=== PATIENT | female | born 1950 | race Caucasian/White ===

== ENCOUNTER 2024-07-06 07:01 | Day surgery (SDC) | payer MEDICARE, SELFPAY ==
[2024-07-03 09:57] VITALS: BMI 25.6
[2024-07-06] VITALS (7 sets, daily range): BP systolic 94–109; BP diastolic 52–64; PULSE 70–72; RESP 16–18; TEMP 36.3–36.6; O2SAT 95–99
[2024-07-06] MEDS: 0.9 % SODIUM CHLORIDE 1000ML 1,000 ML 25 ML IV (07:32)
--- NOTE | 2024-07-06 07:32 | EXP.ANES.CKL ---
[facility] Disclaimer: The information contained in this section may have been updated after the patient was seen, as this information can be updated by other users. Medical History (Updated 07/06/24 @ 07:[address]air) Acid reflux Pacemaker Depression Surgical History (Updated 07/06/24 @ 07:[address]air) Hx of hernia repair History of shoulder surgery History of hand surgery History of weight loss surgery History of back surgery Hx of cholecystectomy History of partial hysterectomy Hx of tonsillectomy Family History (Updated 07/06/24 @ 07:[address]) Other Drug abuse Hypertension Lung cancer Social History Smoking Status: Current every day smoker alcohol intake: never substance use type: denies use current occupational status: employed Travel in the last 8 weeks: None caffeine: No [facility] Anesthesia Checklist Patient Identification Patient Identification: Arm Band, Family and Verbal (Name & ) Structural Data Admitted From: Home Planned Operative Procedure/s: EGD Consent for Planned Operative Procedure(s) Verified: Yes Verified Documents: Surgical Consent and History and Physical NPO Status Verified Time NPO: 20:00 Additional verifications Patient : No Anesthesia Reactions: No Cardiovascular Assessment Heart Sounds: S1 & S2 Pulse Rhythm: Irregular Peripheral Edema: No Airway Assessment Mallampati Score:: Class II C-Spine Mobility Assessed: Yes (FROM) TMJ Mobility Assessed: Yes Dentition: Edentulous Neurological Assessment Level of Consciousness: Awake, Alert, Appropriate and Follows Commands Hx Seizures: No Numbness or tingling in extremities: No Anesthesia Plan Anesthesia Risk discussed: Yes Anesthesia Plan: Verified ASA Class: III Anesthesia Type: MAC
--- NOTE | 2024-07-06 07:55 | ECG_ITS ---
APPROVED REPORT Exam: Resting ECG HR:69 bpm ECG Measurements Heart Rate 69 AXES MI 240 P 101 QRSd 85 QRS 45 QT 395 T 15 QTc 415 Conclusion ELECTRONIC ATRIAL PACEMAKER LOW QRS VOLTAGE IN PRECORDIAL LEADS [QRS DEFLECTION < 1.0 mV IN CHEST LEADS] ABNORMAL RHYTHM ECG UNCONFIRMED REPORT Electronically signed by : Rosendo Liao MD 07/07/2024 17:01:11
--- NOTE | 2024-07-06 08:29 | EXP.HP ---
History of Present Illness *Admission Date: 07/06/24 *Reason for visit:: Dysphagia *History of present illness: Mrs. Butts is a 74-year-old female who is here for recurrent dysphagia. The examination is deemed medically necessary for EGD. The patient has been seen, interviewed and examined prior to the procedure by both myself and the anesthesia provider. [facility] Disclaimer: The information contained in this section may have been updated after the patient was seen, as this information can be updated by other users. Medical History (Updated 07/06/24 @ 08:33 by Paul Samuel II, MD) Acid reflux Pacemaker Depression Surgical History (Updated 07/06/24 @ 07:[address]) Hx of hernia repair History of shoulder surgery History of hand surgery History of weight loss surgery History of back surgery Hx of cholecystectomy History of partial hysterectomy Hx of tonsillectomy Family History (Updated 07/06/24 @ 07:[address]) Other Drug abuse Hypertension Lung cancer Social History (Updated 07/06/24 @ 07:34 by Carolyn Keenan CRNA) Smoking Status: Current every day smoker alcohol intake: never substance use type: denies use current occupational status: employed Travel in the last 8 weeks: None caffeine: No Review of Systems Review of Systems Review of systems (narrative): Negative *Cardiovascular Comments: Negative *Gastrointestinal Comments: Negative *Genitourinary Comments: Negative *Musculoskeletal Comments: Negative *Neurologic Comments: Negative Meds Home Medications and Allergies Home Medications ?Medication ?Instructions ?Recorded ?Confirmed ?Type buspirone 10 mg tablet 10 mg PO DAILY 07/03/24 07/06/24 History cetirizine 10 mg tablet (Zyrtec) 10 mg PO DAILY 07/03/24 07/06/24 History escitalopram oxalate 20 mg tablet 20 mg PO DAILY 07/03/24 07/06/24 History (Lexapro) magnesium 200 mg tablet 200 mg PO DAILY 07/03/24 07/06/24 History omeprazole 40 mg capsule,delayed 40 mg PO DAILY 07/03/24 07/06/24 History release ondansetron HCl 8 mg tablet 8 mg PO Q8H PRN nasuea 07/03/24 07/06/24 History oxybutynin chloride 5 mg tablet 5 mg PO DAILY 11/08/24 11/11/24 History pramipexole 0.25 mg tablet 0.25 mg PO HS 07/03/24 07/06/24 History New Prescriptions to Start Prescriptions: Allergies Allergy/AdvReac Type Severity Reaction Status Date / Time oxycodone [From Percocet] AdvReac Hives Verified 07/06/24 07:24 Exam Data for Last 24 hours Vital signs and Labs for Last 24 Hours: Temp Pulse Resp BP Pulse Ox O2 Del Method 98 F 71 16 104/53 L 98 Room Air 07/06/24 07:25 07/06/24 07:25 07/06/24 07:25 07/06/24 07:25 07/06/24 07:25 07/06/24 07:25 I & O for Last 24 hours: Intake & Output 07/03/24 07/04/24 07/05/24 07/06/24 23:59 23:59 23:59 23:59 Weight 140 lb *Routine HEENT Exam Head: Present normocephalic Eye: Present EOMI and PERRL ENT: Present mucous membranes moist *Routine Neck Exam Neck: Present supple *Routine Respiratory Exam Respiratory: Present CTA bilaterally *Routine Cardiovascular Exam Cardiovascular: Present RRR *Routine Abdominal Exam Abdominal: Present soft and normoactive bowel sounds; Absent tenderness *Routine Rectal Exam Rectal:: deferred *Routine Genitalia Exam Genitalia:: deferred *Routine Extremities Exam Extremities: Absent cyanosis, clubbing or edema *Routine Skin Exam Skin: Present warm; Absent rash *Routine Neurological Exam Neurological: Present alert and oriented X3 Assessment and Plan *Assessment and plan (1) Dysphagia: Status: Acute Category: Medical Code(s): R13.10 - Dysphagia, unspecified (2) History of esophageal stricture: Status: Acute Category: Medical Code(s): Z87.19 - Personal history of other diseases of the digestive system Plan A/P: 1. Dysphagia with prior history of esophageal stricture is the preprocedural diagnosis. The patient will be anesthetized/sedated using MAC sedation. The patient has been seen and examined. Cardiac and lung assessment prior to the examination is stable. Proceed with planned EGD
--- NOTE | 2024-07-06 08:33 | HMH.PROCNOTE ---
[facility] Procedure Note Date: 07/06/24 Time: 08:43 Procedure Note:: Upper Endoscopy Procedure Report: Esophagogastroduodenoscopy with cold biopsies and TTS balloon dilation Endoscopost: Paul Samuel II, MD Referring Physician: STAN Seth ([address] [place] [id number])?[facility] Date of Procedure: July 06, 2024 Equipment: Olympus GIF 190 standard upper endoscope Sedation: MAC sedation Indications: Mrs. Butts is a 74-year-old female with recurrent dysphagia to solid foods (especially rice and noodles) in the lower retrosternal region. The patient has had prior esophageal dilations and her last was approximately 1-1/2 years ago. She reports no heartburn, reflux or dyspepsia. She does have some intermittent belching and feels like a gas bubble in the retrosternal region. Procedure: Prior to the procedure, a history and physical exam was performed, and patient's medications and allergies were reviewed. The risks, benefits and alternatives of the sedation and procedure were discussed with the patient. All questions were answered and informed consent was obtained. The patient was brought to the procedure room. Patient identification and proposed procedure were verified by the physician and the nurse. The patient was placed in a left lateral decubitus position and the scope was passed under direct vision. Throughout the procedure, the patient's blood pressure, pulse, and oxygen saturations were monitored continuously. The upper GI endoscopy was accomplished without difficulty. The patient tolerated the procedure well. Findings: The scope was passed directly into the upper esophagus and advanced to the third portion of the duodenum. The post bulbar duodenum was normal with normal mucosa and conniventes. There was evidence of Piper's gland hypertrophy within the duodenal bulb and cold biopsies were obtained. This was nodular mucosa in appearance. The scope was withdrawn through a normal duodenal bulb and pylorus into the stomach. The antrum was normal in appearance. There were thickened rugal folds in the body and fundus of the stomach with evidence of chronic gastritis with reticular mosaic mucosal pattern. Cold biopsies were taken along the lesser curvature. Upon retroflexion there was no significant hiatal hernia. The scope was then withdrawn into the esophagus. There was no evidence of reflux esophagitis, peptic stricture or Schatzki's ring. There was no Engle's. There were strong tertiary contractions and evidence of moderate to marked esophageal dysmotility. The entire esophagus was dilated to 60 Monegasque/20 mm with a TTS hydrostatic balloon. There was mild resistance at the cricopharyngeus. The remainder of the esophageal mucosa was normal. Impression: 1. Moderate to marked esophageal dysmotility 2. Moderate chronic gastritis with thickened rugal folds 3. Piper's gland hypertrophy of duodenal bulb Plan: I will follow-up the biopsies. We will discuss treatment options for her dysphagia and esophageal dysmotility. I would consider barium swallow if this persist.
== END 2024-07-06 09:45 | disposition home or self-care (01) ==
PROVIDERS: Visit Provider Internal Medicine Gastroenterology
PROC: 0DJ08ZZ Inspection of Upper Intestinal Tract, Via Natural or Artificial Opening Endoscopic (ICD-10-PCS; CPT 43235; principal; 2024-07-06 08:30)
DX: R13.10 Dysphagia, unspecified (principal); Z87.19 Personal history of other diseases of the digestive system; K22.4 Dyskinesia of esophagus; K29.70 Gastritis, unspecified, without bleeding; K31.89 Other diseases of stomach and duodenum
CPT/HCPCS: 43239; 43249; 88305; 93005; C1726; J7030